=== PATIENT | male | born 1990 ===

== ENCOUNTER 2017-07-02 11:49 | Emergency (ER) | payer OTHER, MEDICAID ==
[2017-07-02 12:14] VITALS: BP 146/91; PULSE 74; RESP 18; TEMP 98.1; O2SAT 99
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
== END 2017-07-02 14:53 | disposition home or self-care (01) ==
LOC: H.ER 11:49
DX: M54.9 Dorsalgia, unspecified (principal); M54.2 Cervicalgia; M62.830 Muscle spasm of back; F17.200 Nicotine dependence, unspecified, uncomplicated; V43.62XA Car passenger injured in collision with other type car in traffic accident, initial encounter

== ENCOUNTER 2017-12-19 11:01 | Emergency (ER) | payer MEDICAID, OTHER ==
[2017-12-19 11:06] VITALS: BMI 31.9
[2017-12-19 11:07] VITALS: RESP 18; TEMP 98.8
[2017-12-19] MEDS ORDERED: Sodium Chloride 0.9% 1,000 ML IV STA (11:43)
--- NOTE | 2017-12-19 11:47 | ED PDOC ---
HPI: Abdomen Time Seen by Provider: 12/19/17 11:45 Chief Complaint (Nursing): Abdominal Pain Chief Complaint (Provider): LEFT FLANK PAIN History Per: Patient (27 Y/O MALE HERE WITH LEFT FLANK PAIN RADIATING TO GROIN SINCE THIS MORNING SUDDEN ONSET. DENIES ANY DYSURIA/HEMATURIA/FEVERS/CHILLS. NO H/O KIDNEY STONE.) Past Medical History Reviewed: Historical Data, Nursing Documentation, Vital Signs Vital Signs: Last Vital Signs Temp 98.8 F 12/19/17 14:05 Pulse 81 12/19/17 14:05 Resp 18 12/19/17 14:05 BP 143/84 12/19/17 14:05 Pulse Ox 98 12/19/17 15:44 - Surgical History Surgical History: Appendectomy - Family History Family History: States: No Known Family Hx - Home Medications Home Medications: Ambulatory Orders Medication Instructions Recorded Cyclobenzaprine [Cyclobenzaprine 10 mg PO TID PRN #12 tab 07/02/17 HCl] Ibuprofen [Motrin Tab] 600 mg PO Q6 #20 tab 07/02/17 Ciprofloxacin HCl [Cipro] 500 mg PO BID #14 tablet 12/19/17 Ibuprofen [Motrin] 600 mg PO Q8 PRN #21 tab 12/19/17 Ondansetron ODT [Zofran ODT] 4 mg PO Q8 PRN #10 odt 12/19/17 Tamsulosin HCl [Flomax] 0.4 mg PO BID #10 cap.er.24h 12/19/17 oxyCODONE/Acetaminophen [Percocet 1 ea PO Q6 PRN #15 tab 12/19/17 5/325 mg Tab] - Allergies Allergies/Adverse Reactions: Allergies Allergy/AdvReac Type Severity Reaction Status Date / Time No Known Allergies Allergy Verified 12/19/17 11:12 Review of Systems ROS Statement: Except As Marked, All Systems Reviewed And Found Negative Physical Exam - Reviewed Nursing Documentation Reviewed: Yes Vital Signs Reviewed: Yes - Physical Exam Appears: Positive for: Well, Non-toxic, No Acute Distress Head Exam: Positive for: ATRAUMATIC, NORMAL INSPECTION, NORMOCEPHALIC Skin: Positive for: Normal Color, Warm, DRY Eye Exam: Positive for: EOMI, Normal appearance, PERRL ENT: Positive for: Normal ENT Inspection Neck: Positive for: Normal, Painless ROM Cardiovascular/Chest: Positive for: Regular Rate, Rhythm Respiratory: Positive for: CNT, Normal Breath Sounds Gastrointestinal/Abdominal: Positive for: Normal Exam, Soft, Tenderness ( NONTENDER ABDOMEN) Male Genital Exam: Negative for: scrotum tenderness (R), scrotum tenderness (L) Back: Positive for: Normal Inspection Extremity: Positive for: Normal ROM Neurologic/Psych: Positive for: Alert, Oriented - Laboratory Results Result Diagrams: 12/19/17 11:50 12/19/17 11:50 - ECG O2 Sat by Pulse Oximetry: 98 - Progress ED Course And Treament: TORADOL 15 MG IV NS [address] ABD/PELVIS IMPRESSION: Distal left ureteral calculus 3 mm with this surrounding ureteral mural thickening. This calculus is approximately 2 cm cephalad to the left ureterovesical junction. Trace asymmetrical caliber left ureter very slightly more prominent than the right. No more significant appearing left hydroureter suggested. Two nonobstructing left lower renal pole intra renal collecting system calculi each approximately 2 to 3 mm in size. No significant diffuse left hydronephrosis suggested. There is however minimal left intrarenal fullness noted. Appendix not identify with certainty. No regional pericecal inflammatory changes noted. Comments: Study marked for PA review . Flomax 0.4mg x 1 dose Morphine 2mg iv x 1 dose Disposition - Clinical Impression Clinical Impression: Renal colic - Patient ED Disposition Is Patient to be Admitted: No - Disposition Referrals: Norbert Lake Jr., MD [Staff Provider] - Disposition: Routine/Home Disposition Time: 13:27 Condition: FAIR Prescriptions: Ciprofloxacin HCl [Cipro] 500 mg PO BID #14 tablet Ibuprofen [Motrin] 600 mg PO Q8 PRN #21 tab PRN Reason: Pain, Moderate (4-7) Ondansetron ODT [Zofran ODT] 4 mg PO Q8 PRN #10 odt PRN Reason: Nausea/Vomiting oxyCODONE/Acetaminophen [Percocet 5/325 mg Tab] 1 ea PO Q6 PRN #15 tab PRN Reason: Pain, Severe (8-10) Tamsulosin HCl [Flomax] 0.4 mg PO BID #10 cap.er.24h Instructions: Renal Colic (DC) Forms: [facility] ED School/Work Excuse
[2017-12-19 12:03] LABS: BASO % 0.4 % (0.0-2.0); EOS # 0.1 K/uL (0.0-0.7); EOS % 1.1 % (0.0-4.0); HEMOGLOBIN 15.4 g/dL (12.0-18.0); LYMPH # 2.8 K/uL (1.0-4.3); LYMPH % 22.1 % (20.0-40.0); MEAN CELL VOLUME 85.9 fl (80.0-94.0); MEAN CORPUSCULAR HEMOGLOBIN 30.1 pg (27.0-31.0); MEAN PLATELET VOLUME 8.5 fl (7.2-11.7); MONO # 0.4 K/uL (0.0-0.8); MONO % 3.3 % (0.0-10.0); NEUT # 9.2 K/uL (1.8-7.0); NEUT % 73.1 % (50.0-75.0); NRBC % 0.1 % (0.0-0.0); RBC 5.12 Mil/uL (4.40-5.90); RED CELL DISTRIBUTION WIDTH 12.3 % (11.5-14.5); WHITE BLOOD COUNT 12.6 K/uL (4.8-10.8)
[2017-12-19 12:11] LABS: SQUAMOUS EPITHIAL < 1 /hpf (0-5); URINE BACTERIA RARE (<OCC); URINE BILIRUBIN NEGATIVE (NEGATIVE); URINE BLOOD LARGE (NEGATIVE); URINE CLARITY CLOUDY (Clear); URINE COLOR YELLOW (YELLOW); URINE GLUCOSE (UA) NEG (Normal); URINE LEUKOCYTE ESTERASE NEG Leu/uL (Negative); URINE PROTEIN 30 mg/dL (NEGATIVE); URINE UROBILINOGEN 0.2-1.0 mg/dL (0.2-1.0)
[2017-12-19 12:12] LABS: ALB/GLOB RATIO 1.6 (1.0-2.1); ALBUMIN 4.2 g/dL (3.5-5.0); ALT/SGPT 49 U/L (21-72); AST/SGOT 26 U/L (17-59); BLOOD UREA NITROGEN 11 mg/dl (9-20); CALCIUM 9.5 mg/dL (8.4-10.2); GFR NON-AFRICAN AMERICAN > 60; LIPASE 73 U/L (23-300)
--- NOTE | 2017-12-19 12:58 | CT ---
Date of service: 12/19/2017 PROCEDURE: CT Abdomen and Pelvis without intravenous contrast HISTORY: RENAL COLIC LEFT SIDED COMPARISON: None. TECHNIQUE: Technique. Contrast dose: None Radiation dose: Total exam DLP = 804 mGy-cm. This CT exam was performed using one or more of the following dose reduction techniques: Automated exposure control, adjustment of the mA and/or kV according to patient size, and/or use of iterative reconstruction technique. FINDINGS: LOWER THORAX: Trace lateral right pleural thickening perifissural LIVER: Unremarkable. No gross lesion or ductal dilatation. GALLBLADDER AND BILE DUCTS: Unremarkable. PANCREAS: Unremarkable. No gross lesion or ductal dilatation. SPLEEN: Unremarkable. ADRENALS: Unremarkable. No mass. KIDNEYS AND URETERS: There are 2 non obstructing left lower renal pole collecting system calculi present each is approximately 2 to 3 mm in size. . No significant diffuse left hydronephrosis suggested. There is however minimal left intrarenal fullness noted. . Approximately 2 cm cephalad to the left ureterovesical junction a distal left ureteral approximately 3 mm calculus with trace surrounding ureteral mural thickening is suspect (axial series 2, image 78.) Proximal to this no marked left ureteral dilatation is noted. However there is some trace asymmetrical prominence of the left ureteral caliber compared to the right. VASCULATURE: Few phleboliths. No aortic aneurysm. BOWEL: Unremarkable. No obstruction. No gross mural thickening. APPENDIX: Not identified with certainty. No regional pericecal inflammatory changes noted PERITONEUM: Unremarkable. No free fluid. No free air. LYMPH NODES: Unremarkable. No enlarged lymph nodes. BLADDER: Unremarkable. REPRODUCTIVE: Unremarkable. BONES: No acute fracture. OTHER FINDINGS: None. IMPRESSION: Distal left ureteral calculus 3 mm with this surrounding ureteral mural thickening. This calculus is approximately 2 cm cephalad to the left ureterovesical junction. Trace asymmetrical caliber left ureter very slightly more prominent than the right. No more significant appearing left hydroureter suggested. Two nonobstructing left lower renal pole intra renal collecting system calculi each approximately 2 to 3 mm in size. No significant diffuse left hydronephrosis suggested. There is however minimal left intrarenal fullness noted. Appendix not identify with certainty. No regional pericecal inflammatory changes noted. Comments: Study marked for PA review .
[2017-12-19 14:06] VITALS: BP 143/84; PULSE 81
[2017-12-19 15:45] VITALS: O2SAT 98
== END 2017-12-19 14:15 | disposition home or self-care (01) ==
LOC: H.ER 11:01
DX: N20.1 Calculus of ureter (principal)
CPT/HCPCS: 74176; 80053; 81003; 83690; 85025; 87086; 96361; 96374; 96375; 99283; J1885; J2270; J7030